=== PATIENT | female | born 1980 | race American Indian/Alaskan Native ===

== ENCOUNTER 2016-09-16 21:57 | Emergency (ER) | payer MEDICAID ==
[2016-09-17 00:58] LABS: Alanine Aminotransferase 82 units/L (7-56); Albumin 4.4 g/dL (3.9-5); Alkaline Phosphatase 97 units/L (35-129); Anion Gap 19 mmol/L; BUN/Creatinine Ratio 8.33; Bilirubin,Total 0.5 mg/dL (0.1-1.2); Blood Urea Nitrogen 5 mg/dL (7-17); Calcium 8.5 mg/dL (8.4-10.2); Carbon Dioxide 25 mmol/L (22-30); Chloride 94.9 mmol/L (98-107); Glucose 168 mg/dL (65-100); Lipase 46 units/L (13-60); Potassium 3.5 mmol/L (3.6-5.0); Sodium 135 mmol/L (137-145); Total Protein 8.7 g/dL (6.3-8.2)
[2016-09-17 01:03] LABS: Basophils % (Auto) 1.1 % (0.0-1.8); Eosinophils % (Auto) 0.7 % (0.0-4.3); Hematocrit 28.6 % (30.3-42.9); Mean Corpuscular HGB Conc 31 % (30-34); Platelet Count 227 K/mm3 (140-440); White Blood Count 5.2 K/mm3 (4.5-11.0)
[2016-09-17 01:04] LABS: Mean Corpuscular Hemoglobin 19 pg (28-32); Mean Corpuscular Volume 61 fl (79-97); Red Cell Distribution Width 22.3 % (13.2-15.2)
[2016-09-17 01:31] LABS: Bilirubin,Urine NEG (Negative); Blood,Urine LG (Negative); Ketones,Urine 20 mg/dL (Negative); Leukocyte Esterase,Urine NEG (Negative); Nitrite,Urine NEG (Negative); RBC,Urine < 1.0 /HPF (0.0-6.0); Urobilinogen,Urine < 2.0 mg/dL (<2.0); WBC,Urine < 1.0 /HPF (0.0-6.0)
[2016-09-17] MEDS ORDERED: ZOFRAN IV ONE (07:04)
[2016-09-17] MEDS ORDERED: BENTYL IM ONE (07:04)
[2016-09-17] MEDS ORDERED: NACL 0.9% 1000 ML 2,000 ML IV ONE (07:04)
[2016-09-17] MEDS ORDERED: PEPCID IV ONE (07:04)
--- NOTE | 2016-09-17 07:04 | Emergency Department Report ---
ED General Adult HPI - General Chief complaint: Abdominal Pain Stated complaint: NAUSEA/VOMITING Time Seen by Provider: 09/17/16 06:56 Source: patient, EMS, RN notes reviewed Mode of arrival: Ambulatory Limitations: No Limitations - History of Present Illness Initial comments: This is a 36-year-old female. She has a past medical history of hypertension. Surgical history includes 3. The patient presents to the ER with malaise, nausea, vomiting, weakness, feeling like her skin is clammy, generalized weakness. Symptoms have been going on for the past 3 days. She reports difficulty tolerating liquid feeds. There are no irritative or obstructive urinary symptoms. There is no hematemesis of bright red blood per rectum. She is defecating normally. Patient reports mild headache secondary to nausea and vomiting. The headache is not her primary complaint. The headache is not sudden or thunderclap in nature. It did not reach maximal intensity within an hour. It is not the worst headache of her life. Patient indicated to EMS that she has been experiencing weakness and feeling ill for the past 3 days, vomiting 10 times. Patient has been experiencing night sweats, productive cough, dizziness, generalized body aches. There is no recent travel. No recent antibiotic use. 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 Location: head, abdomen Severity scale (0 -10): 7 Quality: aching Consistency: intermittent Improves with: none Worsens with: none Associated Symptoms: cough, loss of appetite, malaise, nausea/vomiting, weakness - Related Data Home Medications Medication Instructions Recorded Confirmed Last Taken NIFEdipine XL [Procardia Xl] 90 mg PO QDAY 09/17/16 09/17/16 Unknown Previous Rx's Medication Instructions Recorded Last Taken Type Dicyclomine [Bentyl] 10 mg PO QID PRN #20 capsule 09/17/16 Unknown Rx Ondansetron [Zofran Odt] 4 mg PO QID PRN #20 tab.rapdis 09/17/16 Unknown Rx Allergies Allergy/AdvReac Type Severity Reaction Status Date / Time No Known Allergies Allergy Verified 07/13/14 00:27 ED Review of Systems ROS: Stated complaint: NAUSEA/VOMITING Other details as noted in HPI Constitutional: malaise, weakness Eyes: denies: eye discharge ENT: denies: epistaxis Respiratory: cough Cardiovascular: denies: chest pain Gastrointestinal: abdominal pain, nausea, vomiting Genitourinary: denies: urgency, dysuria Musculoskeletal: arthralgia, myalgia Skin: denies: lesions Neurological: weakness Psychiatric: anxiety ED Past Medical Hx - Past Medical History Previous Medical History?: Yes Hx Hypertension: Yes - Surgical History Past Surgical History?: Yes Additional Surgical History: c section x 3 - Social History Smoking Status: Current Every Day Smoker Substance Use Type: Alcohol - Medications Home Medications: Home Medications Medication Instructions Recorded Confirmed Last Taken Type Dicyclomine [Bentyl] 10 mg PO QID PRN #20 capsule 09/17/16 Unknown Rx NIFEdipine XL [Procardia Xl] 90 mg PO QDAY 09/17/16 09/17/16 Unknown History Ondansetron [Zofran Odt] 4 mg PO QID PRN #20 tab.rapdis 09/17/16 Unknown Rx ED Physical Exam - General Limitations: No Limitations General appearance: alert, in no apparent distress - Head Head exam: Present: atraumatic, normocephalic - Eye Eye exam: Present: normal appearance, EOMI. Absent: nystagmus - ENT ENT exam: Present: mucous membranes dry - Neck Neck exam: Present: normal inspection, full ROM. Absent: tenderness, meningismus - Respiratory Respiratory exam: Present: normal lung sounds bilaterally. Absent: respiratory distress, wheezes, rales, rhonchi, stridor, decreased breath sounds - Cardiovascular Cardiovascular Exam: Present: normal rhythm, tachycardia, normal heart sounds. Absent: systolic murmur, diastolic murmur, rubs, gallop - GI/Abdominal GI/Abdominal exam: Present: soft, tenderness, normal bowel sounds, other (there is mild periumbilical abdominal wall tenderness. There is no rebound, guarding or peritoneal signs). Absent: distended, guarding, rebound, rigid, pulsatile mass - Extremities Exam Extremities exam: Present: normal inspection, full ROM, normal capillary refill. Absent: tenderness, pedal edema, joint swelling, calf tenderness - Back Exam Back exam: Present: normal inspection, full ROM. Absent: tenderness, CVA tenderness (R), CVA tenderness (L), muscle spasm, paraspinal tenderness, vertebral tenderness - Neurological Exam Neurological exam: Present: alert, oriented X3, other (Extraocular movements intact. Tongue midline. No facial droop. Facial sensation intact to light touch in the V1, V2, V3 distribution bilaterally. 5 and 5 strength in 4 extremities.. Sensation is intact to light touch in 4 extremities.). Absent: motor sensory deficit - Psychiatric Psychiatric exam: Present: normal affect, normal mood - Skin Skin exam: Present: warm, dry, intact, normal color. Absent: rash ED Course Vital Signs 09/16/16 09/17/16 09/17/16 22:30 08:50 08:55 Temperature 98.4 F Pulse Rate 104 H 94 H Respiratory 20 18 Rate Blood Pressure 121/75 Blood Pressure 149/98 121/75 [Right] O2 Sat by Pulse 100 100 Oximetry 09/17/16 09/17/16 09/17/16 09:00 09:32 10:00 Temperature Pulse Rate Respiratory Rate Blood Pressure 121/75 121/75 122/76 Blood Pressure [Right] O2 Sat by Pulse 100 100 100 Oximetry - Reevaluation(s) Reevaluation #1: 09/17/16 08:11 Differential diagnosis: Viral syndrome, bronchitis, influenza-like illness, appendicitis, colitis, diverticulitis, hepatitis Assessment and plan: 36-year-old female with nonspecific constitutional symptoms , found to be tachycardic. Has nonspecific transaminitis, there is no prior for comparison. Mild lower abdominal tenderness, I suspect that this is secondary to nausea and vomiting. She is tachycardic currently, with a heart rate in the 118 to 120s. X-ray of the chest ordered, CT scan of the abdomen and pelvis with IV contrast is ordered, x-ray of the chest is ordered, IV fluids and symptomatically therapy ordered. I suspect that the patient has a form of hepatitis. Reevaluation #2: 09/17/16 10:26 tachycardia improved. Belly soft on repeat examination. Patient tolerating liquid feeds. Vital signs improved. CT scan suggests hepatic inflammation. Patient will be discharged with nausea medication, nonnarcotic pain medication, instructed to discontinue consumption of alcohol, Tylenol, instructed to follow up with primary care, and/or gastroenterology. Return precautions are reviewed. ED Medical Decision Making - Lab Data Result diagrams: 09/17/16 00:22 09/17/16 00:22 Vital Signs 09/16/16 22:30 Temperature 98.4 F Pulse Rate 104 H Respiratory 20 Rate Blood Pressure 149/98 [Right] O2 Sat by Pulse 100 Oximetry Lab Results 09/17/16 09/17/16 09/17/16 Range/Units 00:22 00:22 00:22 WBC 5.2 (4.5-11.0) K/mm3 RBC 4.70 (3.65-5.03) M/mm3 Hgb 9.0 L (10.1-14.3) gm/dl Hct 28.6 L (30.3-42.9) % MCV 61 L (79-97) fl MCH 19 L (28-32) pg MCHC 31 (30-34) % RDW 22.3 H (13.2-15.2) % Plt Count 227 (140-440) K/mm3 Lymph % (Auto) 19.9 (13.4-35.0) % [place] % (Auto) 4.7 (0.0-7.3) % Eos % (Auto) 0.7 (0.0-4.3) % Baso % (Auto) 1.1 (0.0-1.8) % Lymph # 1.0 L (1.2-5.4) K/mm3 [place] # 0.2 (0.0-0.8) K/mm3 Eos # 0.0 (0.0-0.4) K/mm3 Baso # 0.1 (0.0-0.1) K/mm3 Seg Neutrophils % 73.6 H (40.0-70.0) % Seg Neutrophils # 3.8 (1.8-7.7) K/mm3 Sodium 135 L (137-145) mmol/L Potassium 3.5 L (3.6-5.0) mmol/L Chloride 94.9 L (98-107) mmol/L Carbon Dioxide 25 (22-30) mmol/L Anion Gap 19 mmol/L BUN 5 L (7-17) mg/dL Creatinine 0.6 L (0.7-1.2) mg/dL Estimated GFR > 60 ml/min BUN/Creatinine Ratio 8.33 % Glucose 168 H (65-100) mg/dL Calcium 8.5 (8.4-10.2) mg/dL Total Bilirubin 0.5 (0.1-1.2) mg/dL AST 85 H (5-40) units/L ALT 82 H (7-56) units/L Alkaline Phosphatase 97 (35-129) units/L Total Protein 8.7 H (6.3-8.2) g/dL Albumin 4.4 (3.9-5) g/dL Albumin/Globulin Ratio 1.0 % Lipase 46 (13-60) units/L HCG, Qual Negative (Negative) Urine Color (Yellow) Urine Turbidity (Clear) Urine pH (5.0-7.0) Ur Specific [place] (1.003-1.030) Urine Protein (Negative) mg/dL Urine Glucose (UA) (Negative) mg/dL Urine Ketones (Negative) mg/dL Urine Blood (Negative) Urine Nitrite (Negative) Urine Bilirubin (Negative) Urine Urobilinogen (<2.0) mg/dL Ur Leukocyte Esterase (Negative) Urine WBC (Auto) (0.0-6.0) /HPF Urine RBC (Auto) (0.0-6.0) /HPF 09/17/16 Range/Units 00:54 WBC (4.5-11.0) K/mm3 RBC (3.65-5.03) M/mm3 Hgb (10.1-14.3) gm/dl Hct (30.3-42.9) % MCV (79-97) fl MCH (28-32) pg MCHC (30-34) % RDW (13.2-15.2) % Plt Count (140-440) K/mm3 Lymph % (Auto) (13.4-35.0) % [place] % (Auto) (0.0-7.3) % Eos % (Auto) (0.0-4.3) % Baso % (Auto) (0.0-1.8) % Lymph # (1.2-5.4) K/mm3 [place] # (0.0-0.8) K/mm3 Eos # (0.0-0.4) K/mm3 Baso # (0.0-0.1) K/mm3 Seg Neutrophils % (40.0-70.0) % Seg Neutrophils # (1.8-7.7) K/mm3 Sodium (137-145) mmol/L Potassium (3.6-5.0) mmol/L Chloride (98-107) mmol/L Carbon Dioxide (22-30) mmol/L Anion Gap mmol/L BUN (7-17) mg/dL Creatinine (0.7-1.2) mg/dL Estimated GFR ml/min BUN/Creatinine Ratio % Glucose (65-100) mg/dL Calcium (8.4-10.2) mg/dL Total Bilirubin (0.1-1.2) mg/dL AST (5-40) units/L ALT (7-56) units/L Alkaline Phosphatase (35-129) units/L Total Protein (6.3-8.2) g/dL Albumin (3.9-5) g/dL Albumin/Globulin Ratio % Lipase (13-60) units/L HCG, Qual (Negative) Urine Color Yellow (Yellow) Urine Turbidity Clear (Clear) Urine pH 7.0 (5.0-7.0) Ur Specific [place] 1.010 (1.003-1.030) Urine Protein 30 mg/dl (Negative) mg/dL Urine Glucose (UA) Neg (Negative) mg/dL Urine Ketones 20 (Negative) mg/dL Urine Blood Lg (Negative) Urine Nitrite Neg (Negative) Urine Bilirubin Neg (Negative) Urine Urobilinogen < 2.0 (<2.0) mg/dL Ur Leukocyte Esterase Neg (Negative) Urine WBC (Auto) < 1.0 (0.0-6.0) /HPF Urine RBC (Auto) < 1.0 (0.0-6.0) /HPF - Radiology Data Radiology results: pending, report reviewed, image reviewed CT scan with IV contrast: Mild air-filled distal esophagitis, hiatal hernia and/ or reflux not excluded. Diffuse hepatic infiltration with right hepatic lobe to be 18 cm in length. Numerous incidental findings, no acute surgical disease, the appendix appears to be within normal limits. Critical care attestation.: If time is entered above; I have spent that time in minutes in the direct care of this critically ill patient, excluding procedure time. ED Disposition Clinical Impression: Transaminitis Disposition: DISCHARGED TO HOME OR SELFCARE Is pt being admited?: No Does the pt Need Aspirin: No Condition: Stable Instructions: Abdominal Pain (ED), Viral Hepatitis A (ED), Viral Hepatitis C ( ED), Viral Hepatitis B (ED) Additional Instructions: Take the pain medication, nausea medication as directed. Follow up with a primary care physician or gastroenterology specialist within the next 7-10 days. Laboratory studies and CT scan suggested inflammation of the liver, which is the most likely etiology/cause of the pain. Avoid consumption of acetaminophen, Tylenol, Tylenol containing products, and alcohol. Rest and avoid heavy lifting, avoid consumption of heavy and/or spicy foods. Drink plenty of liquids. Dr. Bueno is a local primary care doctor. Dr. Barrientos is a local gastroenterology specialist. [place] [facility] has a patient service hotline; 6.313.GO.TO.[email or web address] ( [phone]) Please contact the hotline to arrange an outpatient appointment. I recommend further outpatient testing with primary care or gastroenterology to evaluate for the specific cause of liver inflammation. Return to the ER right away with new pain, worsening pain, migration of pain, fevers or chills, intractable nausea or vomiting, inability to tolerate liquid feeds. Referrals: PRIMARY CARE, [Primary Care Provider] - 3-5 Days MARCO BUENO MD [Staff Physician] - 3-5 Days INA BARRIENTOS MD [Staff Physician] - 3-5 Days
[2016-09-17] MEDS ORDERED: NACL ONE (07:17)
--- NOTE | 2016-09-17 08:40 | XRay Report ---
CHEST 2 VIEWS INDICATION: Cough, weakness. COMPARISON: None similar. FINDINGS: PA and lateral chest radiographs demonstrate normal cardiomediastinal silhouette. Clear lungs. Intact bones. Right hemidiaphragm slightly elevated. CONCLUSION: No acute disease in the chest. Thank you for the opportunity to participate in this patient's care.
--- NOTE | 2016-09-17 09:27 | Cat Scan Report ---
CT ABDOMEN AND PELVIS WITH CONTRAST INDICATION: Abdominal pain, nausea, vomiting. Suspect hepatitis. COMPARISON: None similar at this institution. FINDINGS: Abdomen and pelvis CT performed following intravenous administration of 100 cc of Omnipaque 300. LUNG BASES: Mild air filled distal esophageal prominence/slight wall thickening, not excluded for gastroesophageal reflux and/or hiatal hernia, amongst others. Normal heart size. No effusions. Right hemidiaphragm mildly elevated. ABDOMEN: Diffuse fatty hepatic infiltration with right hepatic lobe 18.5 cm in midclavicular length. Approximately 9 mm subtle hypervascular focus in the right hepatic lobe posterosuperiorly, axial series 2, image 49, faintly persists on the delayed phase, possibly a small vascular malformation. Otherwise unremarkable liver, spleen, gallbladder, pancreas, adrenals, nonaneurysmal abdominal aorta, IVC and kidneys. A tiny 1 mm nonobstructing right interpolar calculus, axial image 115, series 2 versus early contrast excretion. No ascites or size significant adenopathy. Nonopacified GI tract evaluation limited, though grossly nonobstructive. Normal appendix. Tiny fat containing umbilical hernia with a transverse neck of 6 mm. PELVIS: Urinary bladder, uterus, adnexa/ovaries and rectosigmoid demonstrate normal CT appearance. No free fluid or significant adenopathy. Slight lower thoracic degenerative spurring. CONCLUSION: No acute CT abnormality with various incidental findings, including a fatty enlarged liver, amongst others, as described. Please correlate. Thank you for the opportunity to participate in this patient's care.
[2016-09-17 10:22] VITALS: BP 122/76
== END 2016-09-17 10:46 | disposition home or self-care (01) ==
LOC: ED 21:57
DX: R74.0 Nonspecific elevation of levels of transaminase and lactic acid dehydrogenase [LDH] (principal); I10 Essential (primary) hypertension; F17.200 Nicotine dependence, unspecified, uncomplicated
CPT/HCPCS: 36415; 71020; 74177; 80053; 81001; 83690; 84703; 85025; 96361; 96372; 96374; 96375; 99285; J0500; J2405; J7030; Q9967